=== PATIENT | female | born 1950 | race Caucasian/White ===

== ENCOUNTER 2022-04-24 15:35 | Emergency (ER) | payer MEDICARE, OTHER ==
[~2022-04-24] VITALS: Ht 167.6 cm; Wt 74.8 kg
[2022-04-24] MEDS ORDERED: NEUPRO (15:58)
[2022-04-24] MEDS ORDERED: levothyroxine (15:58)
[2022-04-24] MEDS ORDERED: propranolol (15:58)
[2022-04-24] MEDS ORDERED: soma (15:58)
[2022-04-24] MEDS ORDERED: sinemet (15:58)
[2022-04-24 16:08] LABS: MEAN CORPUSCULAR HEMOGLOBIN 29.8 uug (24.7-32.8); MEAN CORPUSCULAR VOLUME 87.9 fL (75.5-95.3); PLATELET COUNT (AUTO) 146 K/uL (179-408)
[2022-04-24 16:20] LABS: BILIRUBIN,TOTAL 1.5 mg/dL (0.2-1.0); CREATININE 0.9 mg/dL (0.6-1.3); POTASSIUM 3.3 mmol/L (3.5-5.1); TOTAL PROTEIN, SERUM 7.9 g/dL (6.4-8.2)
[2022-04-24 16:27] LABS: THYROID STIMULATING HORMONE 1.836 mIU/mL (0.358-3.740)
[2022-04-24] MEDS ORDERED: IV NORMAL SALINE 500 ML BAG IV ONE (17:00)
--- NOTE | 2022-04-24 17:53 | NUR ---
Attempted to do EKG on pt x3, EKG machine only shows arteffect. Dr Quinn and Nursing finishing range supervisor, [place] made aware.
--- NOTE | 2022-04-24 18:56 | NUR ---
Notified dr Quinn of pt elevated BP and c/o Lt wrist and Lt hip pain.
[2022-04-24] MEDS ORDERED: ONDANSETRON 4 MG/2 ML VIAL IV ONE (19:00)
[2022-04-24] MEDS ORDERED: MORPHINE SULFATE 2 MG/1 ML DISP.SYRIN IV ONE (19:00)
[2022-04-24] MEDS ORDERED: MORPHINE SULFATE 2 MG/1 ML DISP.SYRIN ONE (19:05)
[2022-04-24] MEDS ORDERED: ONDANSETRON 4 MG/2 ML VIAL ONE (19:05)
--- NOTE | 2022-04-24 20:25 | NUR ---
[phone] - RIKI (Patient's son)
[2022-04-24] MEDS ORDERED: IV NS 1000 ML 1,000 ML IV PRN (20:30)
[2022-04-24] MEDS ORDERED: REMEDY ESSENTIAL ZINC PASTE 113 GM TP PRN (20:30)
[2022-04-24] MEDS ORDERED: ACETAMINOPHEN 325 MG TABLET PO PRN (20:30)
[2022-04-24] MEDS ORDERED: ONDANSETRON 4 MG/2 ML VIAL IV PRN (20:30)
[2022-04-24] MEDS ORDERED: MAGNESIUM HYDROXIDE 30 ML LIQUID UDC PO PRN (20:30)
--- NOTE | 2022-04-24 20:56 | NUR ---
report given to Madelyn GABRIEL
--- NOTE | 2022-04-24 21:16 | NUR ---
called Chucky FLOWERS
--- NOTE | 2022-04-24 21:20 | NUR ---
Dr Aparicio spoke with [facility] Diaz and patient is stable for transfer
--- NOTE | 2022-04-24 21:47 | NUR ---
called patient's son Heron. Updated that patient will be transfered to [facility]
--- NOTE | 2022-04-24 21:47 | NUR ---
Dr Aparicio speaking with Dr Kaye Burnett. updating that patient will be transfered
[2022-04-24 22:03] LABS: *BILIRUBIN,URIN NEGATIVE (NEGATIVE); *BLOOD, URINE NEGATIVE (NEGATIVE); *KETONES,URINE 1+ (NEGATIVE); *UROBILINOGEN,URINE 0.2 E.U./dl (NORMAL); LEUKOCYTE ESTERASE ,URINE TRACE (NEGATIVE); NITRITE, URINE NEGATIVE (NEGATIVE); UGLUCOSE 2+ (NEGATIVE)
[2022-04-24 22:14] LABS: *CLARITY,URINE CLOUDY (CLEAR); *COLOR,URINE STRAW (YELLOW)
[2022-04-24 22:15] LABS: BACTERIA,URINE MODERATE /HPF (NONE SEEN); RBC,URINE 0-3 /HPF (0-3); SQUAMOUS EPITHELIAL CELL,UR MANY /HPF (NONE SEEN)
--- NOTE | 2022-04-24 22:25 | NUR ---
informed [place] [facility] for positive covid result
--- NOTE | 2022-04-24 22:28 | NUR ---
called patient's son Heron. informed that patient is covid positive
--- NOTE | 2022-04-24 23:38 | NUR ---
received a call from [facility] pt will go to [facility] via [facility]er time is 0130 room will be [id number]. accepting md is Dr. Rafiq Adamson. call for report is [phone]
--- NOTE | 2022-04-24 23:52 | NUR ---
report given to Colin GABRIEL - [facility]
--- NOTE | 2022-04-25 01:15 | NUR ---
Patient Tranfers to [facility] via [facility] [address] Physician: Dr Conroy
[2022-04-25] MEDS ORDERED: ENOXAPARIN SODIUM 40 MG/0.4 ML DISP.SYRIN SQ SCH (09:00)
== END 2022-04-25 01:15 | disposition short-term general hospital (02) ==
LOC: ER 15:35
DX: A41.9 Sepsis, unspecified organism (principal); R55 Syncope and collapse; U07.1 COVID-19; J45.909 Unspecified asthma, uncomplicated; G20 Parkinson's disease; I10 Essential (primary) hypertension; E07.9 Disorder of thyroid, unspecified; Z88.0 Allergy status to penicillin; Z91.010 Allergy to peanuts; E78.00 Pure hypercholesterolemia, unspecified; K76.0 Fatty (change of) liver, not elsewhere classified
CPT/HCPCS: 99285; 96374; 70450; 76705; 71045; 96361; 96375; 87426; 80053; 81001; 82550; 84443; 85025; 87040; 87086; 84484; 36415; 93005; 73110; 73502; 83605; 72170; J2405; J2270; J7040; A4663